=== PATIENT | male | born 1990 | race Caucasian/White ===

== ENCOUNTER 2022-04-22 20:34 | Inpatient (IN) ==
[2022-04-22 21:00] LABS: ABS Eosinophils 0.1 10^3/ul (0-0.6); ABS Lymphocytes 1.6 10^3/ul (1.0-4.8); ABS Monocytes 1.1 10^3/ul (0-0.8); ABS Neutrophils 7.3 10^3/ul (1.5-7.7); Eosinophil % 1.3 %; Hematocrit 43 % (42-52); Hemoglobin 14.6 g/dL (14.0-18.0); Lymphocyte % 15.8 %; Mean Corpuscular HGB Conc 34 g/dL (31-36); Mean Corpuscular Hemoglobin 29 pg (27-31); Mean Corpuscular Volume 86 fL (80-94); Mean Platelet Volume 8.3 fL (7.4-10.4); Nucleated Red Blood Cells % 0.2; Platelet Count 229 10^3/uL (150-450); Red Blood Count 4.98 10^6 /uL (4.18-5.48); Red Cell Distribution Width 12 % (10-15); White Blood Count 10.2 10^3/uL (3.5-10.8)
[2022-04-22 21:06] LABS: INR 1.12 (0.86-1.15)
[2022-04-22] MEDS ORDERED: Lactated Ringers 1000 ml BAG IV.FLUID IV ONE (21:19)
[2022-04-22 21:37] LABS: Albumin 4.5 g/dL (3.2-5.2); Albumin/Globulin Ratio 1.8 (1-3); Calcium 9.8 mg/dL (8.6-10.3); Globulin 2.5 g/dL (2-4); Magnesium 1.8 mg/dL (1.9-2.7); Total Bilirubin 0.5 mg/dL (0.2-1.0); eGFR CKD-EPI 73.5 (>60)
[2022-04-22 21:55] LABS: Potassium 4.6 mmol/L (3.5-5.0)
[2022-04-22] MEDS ORDERED: Cefepime 2 GM in Dextrose 2 GM/50 ML BAG IV ONE (23:08)
[2022-04-22] MEDS ORDERED: metroNIDAZOLE IV 500 MG/100ML 500 MG/100 ML BAG IVPB ONE (23:08)
[2022-04-22] MEDS ORDERED: Vancomycin 1,250 MG in NS 0.9% 250 ml 250 ML IVPB ONE (23:45)
[2022-04-22] MEDS ORDERED: LORazepam 2 mg VIAL 1 ml ONE (23:58)
[2022-04-23 00:08] LABS: C Reactive Protein 8.75 mg/L (<8.01)
[2022-04-23] MEDS ORDERED: Lorazepam PYXIS KEY PRN ×2 (00:14→00:46)
[2022-04-23] MEDS ORDERED: LORazepam 2 mg VIAL 1 ml IV PUSH ONE (00:14)
[2022-04-23] MEDS ORDERED: LORazepam 2 mg VIAL 1 ml IV PUSH PRN (00:46)
[2022-04-23] MEDS ORDERED: Valproic Acid IV 100 MG/ML 5 ML VIAL (500 MG) IVPB SCH (01:00)
[2022-04-23] MEDS ORDERED: Lactated Ringers 1000 ml BAG 1,000 ML IV ONE (01:03)
[2022-04-23 01:11] LABS: High Sensitivity Troponin 1 Hr 34 pg/mL (<20)
[2022-04-23] MEDS: Valproic Acid IV 500 MG in NS 0.9% 100 ML IVPB SCH ×2 (01:44→07:58)
[2022-04-23] MEDS ORDERED: Magnesium Sulfate 2 gm BAG 2 GM/50 ML BAG IVPB ONE (04:00)
[2022-04-23 04:32] LABS: Urine Appearance Clear; Urine Bilirubin Negative (Negative); Urine Blood 1+ (Negative); Urine Color Yellow; Urine Glucose Negative (Negative); Urine Ketones Negative (Negative); Urine Nitrite Negative (Negative); Urine Protein Negative (Negative); Urine Urobilinogen Negative (Negative)
[2022-04-23] MEDS ORDERED: Acetaminophen IV 1 GM/100ML 100 ML IV PRN (04:58)
[2022-04-23] MEDS ORDERED: cefTRIAXone 2 gm/50 mL D5W 2 GM/50 ML BAG IV SCH (05:00)
[2022-04-23 05:52] LABS: Urine Bacteria Absent (Absent); Urine Red Blood Cell Trace(0-2/hpf) (Absent); Urine White Blood Cell Absent (Absent)
[2022-04-23 06:08] LABS: ABS Eosinophils 0.1 10^3/ul (0-0.6); ABS Lymphocytes 1.8 10^3/ul (1.0-4.8); ABS Monocytes 1.1 10^3/ul (0-0.8); ABS Neutrophils 6.8 10^3/ul (1.5-7.7); ABS Nucleated RBC 0.1 10^3/ul; Eosinophil % 0.6 %; Hematocrit 41 % (42-52); Hemoglobin 14.6 g/dL (14.0-18.0); Lymphocyte % 18.2 %; Mean Corpuscular HGB Conc 36 g/dL (31-36); Mean Corpuscular Hemoglobin 30 pg (27-31); Mean Corpuscular Volume 85 fL (80-94); Mean Platelet Volume 8.8 fL (7.4-10.4); Nucleated Red Blood Cells % 0.5; Platelet Count 217 10^3/uL (150-450); Red Blood Count 4.82 10^6 /uL (4.18-5.48); Red Cell Distribution Width 12 % (10-15); White Blood Count 9.8 10^3/uL (3.5-10.8)
[2022-04-23 06:42] LABS: Calcium 9.4 mg/dL (8.6-10.3); Potassium 4.2 mmol/L (3.5-5.0); eGFR CKD-EPI 93.5 (>60)
[2022-04-23] MEDS ORDERED: Valproic Acid IV 500 MG in NS 0.9% 100 ml BAG 100 ML IVPB ONE (10:00)
[2022-04-23 10:52] LABS: Folate 6.51 ng/mL (5.90-24.80)
[2022-04-23] MEDS: cefTRIAXone 2 gm/50 mL D5W 2 GM/50 ML BAG IV SCH ×2 (10:58→22:13)
[2022-04-23] MEDS ORDERED: cefTRIAXone 1 gm/50 mL D5W 1 GM/50 ML BAG IV SCH (11:00)
[2022-04-23] MEDS: Lactated Ringers 1000 ml BAG 1,000 ML IV SCH (19:00)
[2022-04-23] MEDS ORDERED: Valproic Acid IV 750 MG in NS 0.9% 100 ml BAG 100 ML IVPB SCH (21:00)
[2022-04-24] MEDS: Lactated Ringers 1000 ml BAG 1,000 ML IV SCH (03:14)
[2022-04-24 05:40] LABS: ABS Eosinophils 0.2 10^3/ul (0-0.6); ABS Lymphocytes 1.6 10^3/ul (1.0-4.8); ABS Monocytes 0.7 10^3/ul (0-0.8); Eosinophil % 3.3 %; Hematocrit 41 % (42-52); Lymphocyte % 29.2 %; Mean Corpuscular HGB Conc 34 g/dL (31-36); Mean Corpuscular Hemoglobin 30 pg (27-31); Mean Corpuscular Volume 87 fL (80-94); Mean Platelet Volume 8.6 fL (7.4-10.4); Platelet Count 210 10^3/uL (150-450); Red Blood Count 4.71 10^6 /uL (4.18-5.48); Red Cell Distribution Width 12 % (10-15); White Blood Count 5.5 10^3/uL (3.5-10.8)
[2022-04-24 06:13] LABS: Calcium 9.3 mg/dL (8.6-10.3); Phosphorus 4.6 mg/dL (2.5-5.0); Potassium 4.1 mmol/L (3.5-5.0); eGFR CKD-EPI 91.5 (>60)
[2022-04-24] MEDS ORDERED: Azithromycin 500 mg/250 ml NS 500 MG/250 ML BAG IVPB SCH (09:00)
[2022-04-24] MEDS ORDERED: Iohexol 350 (CONTRAST) 500 ML MDV IV ONE (09:05)
[2022-04-24] MEDS: cefTRIAXone 2 gm/50 mL D5W 2 GM/50 ML BAG IV SCH (10:34)
[2022-04-24] MEDS ORDERED: Piperacillin/Tazobac ADVAN 3.375 GM in NS 0.9% 100 ml BAG 100 ML IV ONE (15:21)
[2022-04-24] MEDS ORDERED: Zosyn per Pharmacy NOTE FOLLOW UP SCH (16:00)
[2022-04-24] MEDS: Linezolid 600 MG IVPREMIX(*) 600 MG/300 ML BAG IVPB SCH (17:14)
[2022-04-24] MEDS: ZOSYN 3.375 GM Q8H per EXTENDED INFUSION IV SCH (20:26)
[2022-04-25] MEDS: ZOSYN 3.375 GM Q8H per EXTENDED INFUSION IV SCH ×2 (04:11→13:00)
[2022-04-25] MEDS: Linezolid 600 MG IVPREMIX(*) 600 MG/300 ML BAG IVPB SCH (04:13)
[2022-04-25 04:20] LABS: ABS Eosinophils 0.3 10^3/ul (0-0.6); ABS Lymphocytes 1.4 10^3/ul (1.0-4.8); ABS Monocytes 0.7 10^3/ul (0-0.8); ABS Neutrophils 3.2 10^3/ul (1.5-7.7); Eosinophil % 5.2 %; Hematocrit 40 % (42-52); Hemoglobin 13.9 g/dL (14.0-18.0); Lymphocyte % 25.1 %; Mean Corpuscular HGB Conc 35 g/dL (31-36); Mean Corpuscular Hemoglobin 30 pg (27-31); Mean Corpuscular Volume 86 fL (80-94); Nucleated Red Blood Cells % 0.1; Platelet Count 208 10^3/uL (150-450); Red Blood Count 4.68 10^6 /uL (4.18-5.48); Red Cell Distribution Width 12 % (10-15); White Blood Count 5.7 10^3/uL (3.5-10.8)
[2022-04-25 04:53] LABS: Blood Urea Nitrogen 14 mg/dL (6-24); CO2 Carbon Dioxide 32 mmol/L (22-32); Calcium 9.5 mg/dL (8.6-10.3); Chloride 101 mmol/L (101-111); Glucose 99 mg/dL (70-100); Sodium 142 mmol/L (135-145); eGFR CKD-EPI 101.3 (>60)
[2022-04-25 04:56] LABS: Anion Gap 9 mmol/L (2-11)
[2022-04-25] MEDS: Lactated Ringers 1000 ml BAG 1,000 ML IV SCH (08:24)
[2022-04-25] MEDS ORDERED: cefTRIAXone 1 gm/50 mL D5W 1 GM/50 ML BAG IV SCH ×3 (11:00→20:00)
[2022-04-26 05:27] LABS: ABS Eosinophils 0.3 10^3/ul (0-0.6); ABS Lymphocytes 1.8 10^3/ul (1.0-4.8); ABS Monocytes 0.5 10^3/ul (0-0.8); ABS Neutrophils 1.4 10^3/ul (1.5-7.7); Eosinophil % 8.3 %; Hematocrit 45 % (42-52); Hemoglobin 15.7 g/dL (14.0-18.0); Lymphocyte % 44.2 %; Mean Corpuscular HGB Conc 35 g/dL (31-36); Mean Corpuscular Hemoglobin 30 pg (27-31); Mean Corpuscular Volume 86 fL (80-94); Mean Platelet Volume 7.9 fL (7.4-10.4); Nucleated Red Blood Cells % 0.1; Platelet Count 229 10^3/uL (150-450); Red Blood Count 5.21 10^6 /uL (4.18-5.48); Red Cell Distribution Width 12 % (10-15); White Blood Count 4.1 10^3/uL (3.5-10.8)
[2022-04-26 06:06] LABS: Potassium 4.4 mmol/L (3.5-5.0); eGFR CKD-EPI 100.1 (>60)
[2022-04-26 10:17] LABS: Adenovirus Undetected (Undetected); Bordetella parapertussis Undetected (Undetected); Bordetella pertussis Undetected (Undetected); Chlamydophila pneumoniae Undetected (Undetected); Coronavirus 229E Undetected (Undetected); Coronavirus HKU1 Undetected (Undetected); Coronavirus NL63 Undetected (Undetected); Coronavirus OC43 Undetected (Undetected); Human Metapneumovirus Undetected (Undetected); Human Rhinovirus/Enterovirus Undetected (Undetected); Influenza A Undetected (Undetected); Influenza B Undetected (Undetected); Mycoplasmoides pneumoniae Undetected (Undetected); Parainfluenza Virus 1 Undetected (Undetected); Parainfluenza Virus 2 Undetected (Undetected); Parainfluenza Virus 3 Detected (Undetected); Parainfluenza Virus 4 Undetected (Undetected); Respiratory Syncytial Virus Undetected (Undetected); Specimen Source NASOPHARYNGEAL SWAB
[2022-04-26 12:21] VITALS: BP 130/79
[2022-04-27 19:19] LABS: Anaplasma phagocytophilum Negative (Negative); B. miyamotoi PCR, B Negative (Negative); Babesia divergens/MO-1 Negative (Negative); Babesia ducani Negative (Negative); Ehrlichia chaffeensis Negative (Negative); Ehrlichia ewingii/canis Negative (Negative); Ehrlichia muris eauclairensis Negative (Negative)
== END 2022-04-26 14:28 | disposition home or self-care (01) | DRG 53 ==
LOC: ED 20:34 → EDHOLD 20:34 → SUATTDRO 23:44 → ICU 04-23 04:19 → MEDTELE 04-25 05:07
PROVIDERS: ADMIT Internal Medicine; ATTEND Family Medicine

== ENCOUNTER 2022-05-16 01:03 | Observation (INO) ==
[2022-05-16 01:48] LABS: ABS Eosinophils 0.1 10^3/ul (0-0.6); ABS Lymphocytes 1.6 10^3/ul (1.0-4.8); ABS Monocytes 0.7 10^3/ul (0-0.8); ABS Neutrophils 2.5 10^3/ul (1.5-7.7); Eosinophil % 2.5 %; Hematocrit 46 % (42-52); Hemoglobin 16.2 g/dL (14.0-18.0); Lymphocyte % 32.1 %; Mean Corpuscular HGB Conc 35 g/dL (31-36); Mean Corpuscular Hemoglobin 30 pg (27-31); Mean Corpuscular Volume 85 fL (80-94); Mean Platelet Volume 9.2 fL (7.4-10.4); Nucleated Red Blood Cells % 0.1; Platelet Count 242 10^3/uL (150-450); Red Cell Distribution Width 13 % (10-15)
[2022-05-16 01:50] LABS: INR 1.07 (0.86-1.15)
[2022-05-16 02:46] LABS: Albumin 4.3 g/dL (3.2-5.2); Albumin/Globulin Ratio 1.9 (1-3); Calcium 9.8 mg/dL (8.6-10.3); Globulin 2.3 g/dL (2-4); Magnesium 1.6 mg/dL (1.9-2.7); Potassium 4.1 mmol/L (3.5-5.0); Total Bilirubin 0.4 mg/dL (0.2-1.0); Total Protein 6.6 g/dL (6.4-8.9); eGFR CKD-EPI 117.2 (>60)
[2022-05-16] MEDS ORDERED: LORazepam 2 mg VIAL 1 ml ONE (05:55)
[2022-05-16] MEDS ORDERED: LORazepam 2 mg VIAL 1 ml IV PUSH ONE (06:29)
[2022-05-16] MEDS ORDERED: Lorazepam PYXIS KEY PRN ×2 (06:29→12:00)
[2022-05-16] MEDS ORDERED: NS 0.9% 1000 ml BAG 1,000 ML IV ONE (10:07)
[2022-05-16] MEDS ORDERED: Magnesium Sulfate IV 3 GM in NS 0.9% 100 ml BAG 100 ML IVPB ONE (10:28)
[2022-05-16] MEDS ORDERED: NS 0.9% 1000 ml BAG 1,000 ML IV SCH (11:45)
[2022-05-16] MEDS ORDERED: LORazepam 2 mg VIAL 1 ml IV PUSH PRN (12:00)
[2022-05-16] MEDS ORDERED: LaCOSAMide VIAL 200 MG in NS 0.9% 50 ML 50 ML IV ONE (12:30)
[2022-05-16] MEDS ORDERED: Magnesium Sulfate 2 GM IV (Premix) IVPB ONE (13:00)
[2022-05-16] MEDS ORDERED: Magnesium Sulfate 1 GM IV 1 GM/100 ML BAG IV ONE (14:00)
[2022-05-16 15:26] LABS: Urine Appearance Clear; Urine Blood Trace (Lysed) (Negative); Urine Color Yellow; Urine Ketones Negative (Negative); Urine Specific Gravity 1.013 (1.002-1.030); Urine Urobilinogen 0.2 (Negative) (Negative); Urine pH 5.5 (5.0-9.0)
[2022-05-16 15:27] LABS: Urine Bilirubin Negative (Negative); Urine Glucose Negative (Negative); Urine Nitrite Negative (Negative); Urine Protein Trace (Negative)
[2022-05-16 15:34] LABS: Urine Bacteria Absent (Absent); Urine Red Blood Cell Absent (Absent); Urine White Blood Cell Trace(0-5/hpf) (Absent)
[2022-05-17 06:33] LABS: Potassium 4.2 mmol/L (3.5-5.0); eGFR CKD-EPI 120.1 (>60)
[2022-05-17 15:09] VITALS: BP 118/76
== END 2022-05-17 17:30 | disposition home or self-care (01) ==
LOC: ED 01:03 → SUATTDRO 10:13 → INTOOBSV 10:13 → EDHOLD 10:13 → MED 15:41
PROVIDERS: ADMIT Internal Medicine; ATTEND Hospitalist

== ENCOUNTER 2023-03-31 20:56 | Observation (INO) ==
[2023-03-31] MEDS ORDERED: Lactated Ringers 1000 ml BAG 1,000 ML IV ONE ×2 (21:40→22:47)
[2023-03-31] MEDS ORDERED: Acetaminophen IV 1 GM/100ML 1,000 MG/100 ML BAG IV ONE (21:40)
[2023-03-31 22:18] LABS: Albumin 4.3 g/dL (3.2-5.2); Calcium 9.7 mg/dL (8.6-10.3); Globulin 2.1 g/dL (2-4); Magnesium 1.6 mg/dL (1.9-2.7); Phosphorus 1.9 mg/dL (2.5-5.0); Potassium 4.2 mmol/L (3.5-5.0); Total Bilirubin 0.4 mg/dL (0.2-1.0); Total Protein 6.4 g/dL (6.4-8.9); eGFR CKD-EPI 101.9 (>60)
[2023-03-31] MEDS ORDERED: Magnesium Sulfate 2 gm BAG 2 GM/50 ML BAG IVPB ONE (22:18)
[2023-03-31 22:20] LABS: ABS Basophils 0.1 10^3/uL (0.0-0.1); ABS Lymphocytes 1.3 10^3/uL (1.0-4.8); ABS Monocytes 0.8 10^3/uL (0.0-1.1); ABS Neutrophils 5.8 10^3/uL (1.5-7.6); ABS Nucleated RBC 0.01 10^3/ul; Eosinophil % 0.3 %; Hematocrit 44.6 % (38-53); Hemoglobin 16.2 g/dL (13.2-16.3); Lymphocyte % 16.7 %; Mean Corpuscular Hemoglobin 30.3 pg (27-33); Mean Corpuscular Hgb Conc 36.2 g/dL (31-36); Mean Corpuscular Volume 83.7 fL (80-97); Mean Platelet Volume 8.7 fL (7.5-11.2); Nucleated Red Blood Cells % 0.2 /100 WBC (0.0-0.4); Platelet Count 219 10^3/uL (150-450); Red Blood Count 5.33 10^6/uL (4.06-5.63); Red Cell Distribution Width 12.7 % (12-17)
[2023-03-31] MEDS ORDERED: cefTRIAXone 1 gm/50 mL D5W 1 GM/50 ML BAG IV ONE (22:20)
[2023-04-01] MEDS ORDERED: Sodium Phosphate IV 45 MMOL in NS 0.9% 250 ml 250 ML IV ONE (02:00)
[2023-04-01] MEDS ORDERED: Dextrose 50% Syringe 50 ml 25 GM/50 ML SYRINGE IV PUSH PRN (02:09)
[2023-04-01 06:08] LABS: ABS Nucleated RBC 0.01 10^3/ul; Eosinophil % 0.1 %; Hematocrit 43.7 % (38-53); Hemoglobin 15.7 g/dL (13.2-16.3); Lymphocyte % 21.8 %; Mean Corpuscular Hemoglobin 29.6 pg (27-33); Mean Corpuscular Volume 82.3 fL (80-97); Mean Platelet Volume 8.7 fL (7.5-11.2); Nucleated Red Blood Cells % 0.1 /100 WBC (0.0-0.4); Platelet Count 203 10^3/uL (150-450); Red Blood Count 5.31 10^6/uL (4.06-5.63); Red Cell Distribution Width 12.8 % (12-17)
[2023-04-01 06:36] LABS: Calcium 9.4 mg/dL (8.6-10.3); Creatinine, Serum 0.78 mg/dL (0.67-1.17); Magnesium 2.1 mg/dL (1.9-2.7); Total Bilirubin 0.5 mg/dL (0.2-1.0); eGFR CKD-EPI 120.8 (>60)
[2023-04-01] MEDS ORDERED: Lactated Ringers 1000 ml BAG 1,000 ML IV SCH (07:00)
[2023-04-01 08:05] LABS: C Reactive Protein 20.9 mg/L (<8.01)
[2023-04-01] MEDS ORDERED: [UNRECOGNIZED DRUG - OTHER] PO SCH (09:00)
[2023-04-01 10:51] VITALS: BP 156/75
[2023-04-01] MEDS ORDERED: cefTRIAXone 1 gm/50 mL D5W 1 GM/50 ML BAG IV SCH ×2 (23:00)
[2023-04-02] MEDS ORDERED: [UNRECOGNIZED DRUG - OTHER] PO SCH (09:00)
[2023-04-02 20:57] LABS: Lacosamide 5.6 mcg/mL (1.0 - 10.0)
== END 2023-04-01 12:06 | disposition home or self-care (01) ==
LOC: ED 20:56 → EDHOLD 23:56 → INTOOBSV 23:56 → SUATTDRO 23:56 → MEDTELE 04-01 03:43
PROVIDERS: ADMIT Internal Medicine; ATTEND Internal Medicine